=== PATIENT | female | born 2000 | race Caucasian/White ===

== ENCOUNTER 2024-06-14 09:22 | Emergency (ER) | payer BC | END 2024-06-14 11:30 | disposition home or self-care (01) | LOC: JD.ED 09:22 | DX: S93.402A Sprain of unspecified ligament of left ankle, initial encounter (principal); X50.9XXA Other and unspecified overexertion or strenuous movements or postures, initial encounter | CPT/HCPCS: 73610-26-LT; 73610-LT; 99283 ==